=== PATIENT | male | born 1985 | race Two or more races ===

== ENCOUNTER 2022-05-12 09:32 | Emergency (ER) | payer OTHER ==
[2022-05-12] MEDS: Ibuprofen 200 MG Tab PO ONE (11:06)
[2022-05-12] MEDS: Diphtheria,Pertussis(Acell),Tetanus Vaccine 0.5 ML Syringe IM ONE (11:06)
== END 2022-05-12 11:19 | disposition home or self-care (01) ==
LOC: VM.ED 09:32
DX: S67.196A Crushing injury of right little finger, initial encounter (principal); Z23 Encounter for immunization; W23.0XXA Caught, crushed, jammed, or pinched between moving objects, initial encounter; Y92.89 Other specified places as the place of occurrence of the external cause; Y99.0 Civilian activity done for income or pay
CPT/HCPCS: 12001; 73140-F9; 90471; 90715; 99282-25; 99283; A9270-GY

== ENCOUNTER 2022-05-15 12:20 | Emergency (ER) | payer OTHER | END 2022-05-15 13:07 | disposition home or self-care (01) | LOC: VM.ED 12:20 | DX: S67.196D Crushing injury of right little finger, subsequent encounter (principal); Z48.01 Encounter for change or removal of surgical wound dressing; Z72.0 Tobacco use; W23.1XXD Caught, crushed, jammed, or pinched between stationary objects, subsequent encounter | CPT/HCPCS: 20600; 99283 ==